=== PATIENT | female | born 1960 | race Caucasian/White ===

== ENCOUNTER 2020-10-12 10:47 | Outpatient (CLI) | payer BC, SELFPAY ==
--- NOTE | 2020-10-12 11:00 | MR_ITS ---
WS: [id number] MRI HEAD WITH CONTRAST TECHNIQUE: Sagittal T1, T2 axial, T2 axial FLAIR, axial susceptibility weighted imaging, axial diffus ion weighted images, and coronal T2 images were obtained. Pre and post-T1 axial and post T1 coronal i mages. ADC and FSPGR images. CLINICAL INFORMATION: MENINGIOMA COMPARISON: No available comparisons FINDINGS: Enhancing extra-axial lesion overlying the right parasagittal frontal lobe consistent with meningioma. This measures approximately 9.7 x 9.6 x 8.6 cm AP by transverse by craniocaudal. Minimal mass effect on the underlying right frontal lobe. No underlying edema. This abuts the right frontal s inus which remains patent. No evidence of restricted diffusion to suggest acute ischemia. Ventricular system and basal cisterns are patent. Minimal white matter changes. Mild parenchymal volume loss. Normal posterior fossa. Milli l vascular flow voids at the skull base. No extra-axial fluid collections.Paranasal sinuses and masto id air cells well aerated. No hemosiderin on the susceptibility weighted images. Normal optic chiasm and pituitary infundibulum. Mild symmetric atrophy temporal lobes and hippocampal formations MR/MR head wo/w con [id number] IMPRESSION: 1. Enhancing meningioma overlying the right frontal lobe measuring 9.7 x 9.6 x 8.6 cm. No underlying edema in the brain parenchyma. 2. Meningioma abuts the right frontal sinus which remains patent. 3. No restricted diffusion to suggest acute ischemia. 4. Minimal small vessel changes with mild parenchymal volume loss.
[2020-10-12] MEDS: gadobenate dimeglumine 20 mL vial IV (12:27)
== END 2020-10-12 10:48 | disposition home or self-care (01) ==
LOC: RADSHAW 10:53
PROVIDERS: PCP Family Medicine; Visit Provider Psychiatry & Neurology Neurology
DX: D32.9 Benign neoplasm of meninges, unspecified (principal)
CPT/HCPCS: 70553; A9577

== ENCOUNTER 2024-10-20 05:00 | Outpatient (RCR) | payer BC, SELFPAY | END 2024-11-19 23:55 | disposition home or self-care (01) | LOC: WPT 05:00 | DX: Z47.1 Aftercare following joint replacement surgery (principal); Z96.652 Presence of left artificial knee joint | CPT/HCPCS: 97110; 97112; 97162; 97530 ==

== ENCOUNTER 2024-12-20 05:00 | Outpatient (RCR) | payer BC, SELFPAY | END 2025-01-19 23:59 | disposition home or self-care (01) | LOC: WPT 05:00 | PROVIDERS: Visit Provider Orthopaedic Surgery | DX: Z47.1 Aftercare following joint replacement surgery (principal); Z96.652 Presence of left artificial knee joint | CPT/HCPCS: 97110; 97112; 97530 ==

== ENCOUNTER 2025-01-20 05:00 | Outpatient (RCR) | payer BC, SELFPAY | END 2025-02-19 23:59 | disposition home or self-care (01) | LOC: WPT 05:00 | PROVIDERS: Visit Provider Orthopaedic Surgery | DX: Z47.1 Aftercare following joint replacement surgery (principal); Z96.652 Presence of left artificial knee joint | CPT/HCPCS: 97110; 97112; 97530 ==

== ENCOUNTER 2025-02-20 05:00 | Outpatient (RCR) | payer BC, SELFPAY | END 2025-03-01 10:40 | disposition home or self-care (01) | LOC: WPT 05:00 | PROVIDERS: Visit Provider Orthopaedic Surgery | DX: Z47.1 Aftercare following joint replacement surgery (principal); Z96.652 Presence of left artificial knee joint | CPT/HCPCS: 97110; 97112; 97530 ==

== ENCOUNTER 2025-06-21 11:55 | Outpatient (RCR) | payer BC, SELFPAY | END 2025-06-21 23:59 | disposition home or self-care (01) | LOC: WPT 11:55 | PROVIDERS: Visit Provider Orthopaedic Surgery | DX: Z47.89 Encounter for other orthopedic aftercare (principal) | CPT/HCPCS: 97110; 97112; 97161; 97530 ==